=== PATIENT | female | born 1985 | race Caucasian/White ===

== ENCOUNTER 2016-09-12 07:18 | Emergency (ER) | payer OTHER ==
[~2016-09-12] VITALS: Ht 162.6 cm; Wt 86.6 kg
[~2016-09-12 07:18] MED LIST: AMBIEN5 M1 PO; AMOXICILLIN875 MG PO; Colace PO; FEOSOL325 MG PO; FLEXERIL10 MG PO; FLINTSTONES1 TABLET PO; Feosol PO; HYDROCODON-ACE1 EAC8 PO; LIDOCAINE700 MG TD; LORTAB 5-325 M1 EACH PO; MOTRIN400 MG PO; MOTRIN800 MG PO; Motrin PO; NAPROSYN500 MG PO; NOHOMEMEDS; NORCO 5/3251 TABLET PO; PERCOCET 5/31 TABLET PO; Percocet 5/325,Endoc PO; REGLAN10 MG PO; REGLAN5 MG PO; TIZANIDINE HCL4 MG PO; TRAMADOL HCL50 MG PO; TYLENOL WITH C1 EACH PO; ULTRAM50 MG PO; ZANAFLEX4 M1 PO; ZOFRAN ODT4 MG PO; [UNRECOGNIZED DRUG - OTHER] PO
[2016-09-12] MEDS ORDERED: MOTRIN800 MG PO (08:58)
[2016-09-12] MEDS ORDERED: FLEXERIL10 MG PO (08:58)
[2016-09-12 09:09] VITALS: BP 102/62
== END 2016-09-12 09:10 | disposition home or self-care (01) ==
LOC: EME 07:18
DX: S20.211A Contusion of right front wall of thorax, initial encounter (principal); S30.0XXA Contusion of lower back and pelvis, initial encounter; W01.0XXA Fall on same level from slipping, tripping and stumbling without subsequent striking against object, initial encounter; Y99.0 Civilian activity done for income or pay; Z88.5 Allergy status to narcotic agent
CPT/HCPCS: 71100; 72100; 99281; 99284; J1885